=== PATIENT | female | born 1945 | race Caucasian/White ===

== ENCOUNTER 2025-04-20 18:57 | Inpatient (IN) | payer MEDICARE ==
[~2025-04-20] VITALS: Ht 152.4 cm; Wt 87.1 kg
[2025-04-20] MEDS ORDERED: DIVA500T2 PO (19:28)
[2025-04-20] MEDS ORDERED: OLAN5TAB70 PO (19:28)
[2025-04-20 20:30] LABS: PLATELET COUNT (AUTO) 168 K/uL (179-408); RED BLOOD CELL COUNT(AUTO) 3.51 MIL/uL (3.63-4.92); RED CELL DISTRIBUTION WIDTH 14.3 % (12.3-17.7); WHITE BLOOD COUNT (AUTO) 5.3 K/uL (3.8-11.8)
[2025-04-20 20:38] LABS: CREATININE 0.9 mg/dL (0.6-1.3); SODIUM SERUM 134 mmol/L (136-145); UREA NITROGEN, BLOOD 21 mg/dL (7-18)
[2025-04-20 20:51] LABS: CREATINE KINASE, TOTAL 43 U/L (26-192); VALPROIC ACID 50 ug/mL (50-100)
[2025-04-20 21:30] VITALS: BP 100/52
[2025-04-20 22:50] VITALS: BP 145/59; TEMP 98.2; O2SAT 97
[2025-04-20] MEDS ORDERED: MAGNESIUM HYDROXIDE 30 ML LIQUID UDC PO PRN (23:00)
[2025-04-20] MEDS ORDERED: LORAZEPAM 1 MG TABLET PO PRN ×2 (23:00)
[2025-04-20] MEDS ORDERED: ZOLPIDEM 5 MG TABLET PO PRN ×2 (23:00)
[2025-04-21] MEDS ORDERED: FLUO20CA36 PO (00:48)
[2025-04-21] MEDS ORDERED: ATOR20TA PO (00:48)
[2025-04-21] MEDS ORDERED: NAPR-1009 PO (00:48)
[2025-04-21] MEDS ORDERED: TRAM100T23 PO (00:48)
[2025-04-21] MEDS ORDERED: METO5TAB7 PO (00:48)
[2025-04-21] MEDS ORDERED: REMEDY ESSENTIAL ZINC PASTE 113 GM TOP PRN (07:15)
[2025-04-21 08:17] LABS: ASPARTATE AMINOTRANSFERASE 16 U/L (15-37); CREATININE 0.8 mg/dL (0.6-1.3); SODIUM SERUM 139 mmol/L (136-145); TOTAL PROTEIN, SERUM 5.7 g/dL (6.4-8.2); UREA NITROGEN, BLOOD 22 mg/dL (7-18)
[2025-04-21 08:45] VITALS: BP 127/52; TEMP 98.2; O2SAT 96
[2025-04-21] MEDS: OLANZAPINE 2.5 MG TABLET PO SCH (10:31)
[2025-04-21] MEDS: DIVALPROEX 250 MG TABLET.DR PO SCH (10:31)
[2025-04-21] MEDS: FLUOXETINE HCL 10 MG CAPSULE PO SCH (11:52)
[2025-04-21] MEDS: METOLAZONE 2.5 MG TABLET PO SCH (13:00)
[2025-04-21 16:15] VITALS: BP 134/77; TEMP 98.2; O2SAT 98
[2025-04-21] MEDS: NAPROXEN 500 MG TABLET PO SCH (18:05)
[2025-04-21 20:29] VITALS: BP 130/62; TEMP 98.2; O2SAT 96
[2025-04-21] MEDS: ATORVASTATIN 20 MG TABLET PO SCH (20:31)
[2025-04-21] MEDS: TRAMADOL HCL 50 MG TABLET PO PRN (20:32)
[2025-04-21] MEDS: MELATONIN 3 MG TABLET PO SCH (20:33)
[2025-04-22 08:14] VITALS: BP 101/57; TEMP 98.2; O2SAT 98
[2025-04-22 16:30] VITALS: BP 134/77; TEMP 98.2; O2SAT 98
[2025-04-22] MEDS: METFORMIN HCL 500 MG TABLET PO SCH (17:33)
[2025-04-22 19:54] VITALS: BP 114/68; TEMP 98.1; O2SAT 96
[2025-04-22] MEDS: LORAZEPAM 1 MG TABLET PO PRN (20:01)
[2025-04-23] MEDS: MAG HYDROX/AL HYDROX/SIMETH 30 ML LIQUID UDC PO PRN (09:02)
[2025-04-23 09:41] VITALS: BP 103/57; TEMP 98.2; O2SAT 98
[2025-04-23] MEDS ORDERED: LOPERAMIDE HCL 2 MG CAPSULE PO PRN (12:15)
[2025-04-23 16:36] VITALS: BP 101/57; TEMP 98.2; O2SAT 98
[2025-04-23 20:00] VITALS: BP 114/54; TEMP 98.1; O2SAT 98
[2025-04-24 08:41] VITALS: BP 115/52; TEMP 98.2; O2SAT 98
[2025-04-24 16:27] VITALS: BP 129/64; TEMP 98.2; O2SAT 98
[2025-04-24 20:00] VITALS: BP 125/60; TEMP 98.4; O2SAT 95
[2025-04-25 07:35] VITALS: BP 105/47; TEMP 98; O2SAT 94
[2025-04-25 16:12] VITALS: BP 137/57; TEMP 98.2; O2SAT 99
[2025-04-25 20:00] VITALS: BP 136/64; TEMP 97.7; O2SAT 95
[2025-04-26 08:12] VITALS: BP 133/69; TEMP 98.2; O2SAT 98
[2025-04-26 15:10] VITALS: BP 138/54; TEMP 98; O2SAT 99
[2025-04-26 19:59] VITALS: BP 130/76; TEMP 97.9; O2SAT 98
[2025-04-27 07:55] VITALS: BP 116/56; TEMP 98; O2SAT 98
[2025-04-27] MEDS: ACETAMINOPHEN 325 MG TABLET PO PRN (13:26)
[2025-04-27 15:41] VITALS: BP 125/63; TEMP 98; O2SAT 98
[2025-04-27] MEDS: ONDANSETRON ODT 4 MG TAB.RAPDIS SL PRN (19:05)
[2025-04-27 19:57] VITALS: BP 118/64; TEMP 97.9; O2SAT 98
[2025-04-28 08:28] VITALS: BP 121/46; TEMP 98.2; O2SAT 96
[2025-04-28 15:40] VITALS: BP 101/55; TEMP 98.2; O2SAT 96
[2025-04-28 19:35] VITALS: BP 135/70; TEMP 98; O2SAT 96
[2025-04-29 08:27] VITALS: BP 118/50; TEMP 98.2; O2SAT 96
[2025-04-29 16:48] VITALS: BP 112/69; TEMP 98; O2SAT 96
[2025-04-30 08:16] VITALS: BP 158/62; TEMP 98.2; O2SAT 96
[2025-04-30 09:14] VITALS: TEMP 98
== END 2025-04-30 11:30 | disposition home or self-care (01) | DRG 885 ==
LOC: ER 19:55 → GPS 22:05
PROVIDERS: ADMIT Psychiatry & Neurology Psychiatry; ATTEND Internal Medicine
DX: F31.5 Bipolar disorder, current episode depressed, severe, with psychotic features (principal); L97.812 Non-pressure chronic ulcer of other part of right lower leg with fat layer exposed; L97.822 Non-pressure chronic ulcer of other part of left lower leg with fat layer exposed; I89.0 Lymphedema, not elsewhere classified; R29.6 Repeated falls; E78.5 Hyperlipidemia, unspecified; I83.018 Varicose veins of right lower extremity with ulcer other part of lower leg; I83.028 Varicose veins of left lower extremity with ulcer other part of lower leg; K21.9 Gastro-esophageal reflux disease without esophagitis; Z79.899 Other long term (current) drug therapy; Z88.8 Allergy status to other drugs, medicaments and biological substances; Z87.448 Personal history of other diseases of urinary system
CPT/HCPCS: 36415; 80164; 84484; 85025; J3490; Q0162